=== PATIENT | female | born 2000 | race Two or more races ===

== ENCOUNTER → 2025-03-22 | Outpatient (CLI) | payer MEDICAID, SELFPAY ==
--- NOTE | 2025-03-22 09:30 | XR_ITS ---
Examination: Thyroid sonography complete TECHNIQUE: Grayscale sonographic images thyroid lobes Date and time: March 22, 2025 1013 hours INDICATIONS: Diagnosis hypothyroidism 6 months FINDINGS: Right thyroid 6.0 cm Vascular lower pole nodule 11 x 10 x 12 mm Left thyroid 4.7 cm No solid nodules IMPRESSION: Vascular lower pole right thyroid nodule 11 x 10 x 12 mm
--- NOTE | 2025-03-22 10:00 | XR_ITS ---
Examination: Ultrasound-guided fine needle percutaneous aspiration thyroid nodule, lower pole right thyroid nodule. Thyroid sonography, limited Exam date and time: March 22, 2025 10:24 AM INDICATIONS: Vascular lower pole right thyroid nodule on thyroid sonogram today. Technique: A timeout was completed verifying correct patient, procedure, site, positioning and special equipment if applicable. The patient was placed in supine position for the thyroid fine needle percutaneous aspiration The patient's right neck was prepped and draped in sterile fashion. Maximum barrier sterile technique, hand hygiene, ultrasound sterile technique. 1% lidocaine was used to anesthetize the skin and subcutaneous tissues to the patient's right thyroid nodule. Multiple fine needle aspirations were performed and multiple thyroid specimens placed in preservative according to the irm protocol. Specimens appears satisfactory. The attending radiologist was present for the entire procedure. Estimated blood loss 3 cc. The patient tolerated the procedure well and there were no complications. Impression: Successful ultrasound-guided fine-needle percutaneous aspiration thyroid nodule, lower pole right thyroid nodule.
[2025-03-22 10:01] LABS: Basophils # (Auto) 0.1 Thou/mm3 (0.0-0.2); Basophils % (Auto) 1 % (0-2.5); Eosinophils # (Auto) 0.1 Thou/mm3 (0.0-0.5); Eosinophils % (Auto) 1 % (0-10); Hematocrit 39.4 % (36.0-46.0); Hemoglobin 13.8 g/dL (12.0-16.0); Immature Granulocytes % (Auto) 0 % (0-0); Immature Granulocytes Auto 0.03 Thou/mm3 (0.00-0.00); Lymphocytes # (Auto) 1.9 Thou/mm3 (1.0-4.8); Lymphocytes % (Auto) 23 % (10-50); Mean Corpuscular Hemoglobin 31.9 pg (25.0-35.0); Mean Corpuscular Volume 91 fL (80-100); Monocytes # (Auto) 0.6 Thou/mm3 (0.0-0.8); Monocytes % (Auto) 7 % (0-12); Neutrophils # (Auto) 5.7 Thou/mm3 (1.8-7.7); Neutrophils % (Auto) 69 % (37-80); Nucleated Red Blood Cell % 0 /100 WBC (0); Platelet Count 245 Thou/mm3 (140-440); RDW Standard Deviation 41.7 fL (36.4-46.3); Red Blood Count 4.32 Miln/mm3 (4.00-5.20); White Blood Count 8.3 Thou/mm3 (3.6-11.0)
[2025-03-22 10:15] LABS: HCG,Qualitative Serum Negative
[2025-03-22 10:25] LABS: Partial Thromboplastin Time 23.9 Seconds (22.0-36.0); Prothrombin Time 11.4 Seconds (9.0-12.2)
== END | disposition home or self-care (01) ==
PROVIDERS: Radiology Diagnostic Radiology; PCP Family Medicine
DX: E04.1 Nontoxic single thyroid nodule (principal)
CPT/HCPCS: 10005; 36415; 76536; 84703; 85025; 85610; 85730